=== PATIENT | female | born 1955 | race Two or more races ===

== ENCOUNTER 2018-07-12 18:14 | Inpatient (IN) | payer BC ==
[~2018-07-12] VITALS: Ht 165.1 cm; Wt 149.7 kg
[2018-07-12] MEDS ORDERED: ONDANSETRON HCL 4MG/2ML INJ IV STA (20:11)
[2018-07-12] MEDS ORDERED: MORPHINE SULFATE 4 MG/ML CPJ (NOT FOR IM USE) IV STA (20:11)
[2018-07-12] MEDS ORDERED: FAMOTIDINE 20MG/2ML VIAL IV ONE (20:15)
[2018-07-12] MEDS ORDERED: MAGNESIUM/ALUMINUM HYDROXIDE/SIMETHICONE 30ML UDC PO ONE (20:15)
[2018-07-12 21:31] LABS: BASOPHILS % 0.6 % (0.0-2.0); EOSINOPHILS % 0.3 % (0.0-5.0); HEMATOCRIT. 39.9 % (36.0-48.0); HEMOGLOBIN. 13.2 g/dL (12.0-16.0); LYMPHOCYTES % 15.1 % (20.0-50.0); MEAN CORPUSCULAR HEMOGLOBIN 27.2 pg (28.0-32.0); MEAN CORPUSCULAR VOLUME 82.3 fL (81.0-99.0); MEAN PLATELET VOLUME 9.2 fl (7.4-10.4); MONOCYTES % 7.5 % (2.0-8.0); NEUTROPHILS % 76.5 % (40.0-76.0); PLATELET 239 x1000/uL (130-400); RED BLOOD CELL COUNT 4.85 mill/uL (4.2-5.4); RED CELL DISTRIBUTION WIDTH 16.3 % (11.6-14.6)
[2018-07-12 21:36] LABS: CHLORIDE 103 mEq/L (98-107)
[2018-07-12 21:44] LABS: ETHANOL BLOOD < 10 mg/dL
[2018-07-12 21:45] LABS: D-DIMER 1.27 mg/L FEU (<0.50)
[2018-07-13 08:00] VITALS: BP 160/91
[2018-07-13] MEDS ORDERED: MULT-1146 MT (09:32)
[2018-07-13] MEDS ORDERED: LOSA100T3 MT (09:32)
[2018-07-13] MEDS ORDERED: ASPI-1158 MT (09:32)
[2018-07-13] MEDS ORDERED: CALC-1042 MT (09:32)
[2018-07-13] MEDS ORDERED: SITA100T11 MT (09:32)
[2018-07-13] MEDS ORDERED: RANI150C12 MT (09:32)
[2018-07-13] MEDS ORDERED: CIDE300T3 PO (09:32)
[2018-07-13] MEDS ORDERED: FERR-71 MT (09:32)
[2018-07-13 09:49] VITALS: BP 160/91
[2018-07-13] MEDS ORDERED: IPRATROPIUM/ALBUTEROL 0.5-3(2.5)MG/3ML NEB INH PRN (10:30)
[2018-07-13] MEDS ORDERED: ONDANSETRON HCL 4MG/2ML INJ IV PRN (10:30)
[2018-07-13] MEDS ORDERED: DEXTROSE 50% WATER 50ML SYRINGE IV PRN (11:45)
[2018-07-13] MEDS: LOSARTAN POTASSIUM 100 MG TABLET PO SCH (11:52)
[2018-07-13] MEDS: ENOXAPARIN 40MG/0.4ML SYR SUBCUT SCH ×2 (11:52→21:35)
[2018-07-13] MEDS: CLONIDINE 0.1MG TABLET PO PRN (11:52)
[2018-07-13] MEDS: BLOOD SUGAR DIAGNOSTIC STRIP TEST SCH ×3 (11:53→21:26)
[2018-07-13] MEDS: INSULIN LISPRO 100 UNITS/ML SUBCUT SCH ×3 (11:55→21:00)
[2018-07-13] MEDS: CALCIUM CARBONATE 500MG TABLET CHEW PO SCH ×2 (11:55→18:03)
[2018-07-13 12:00] VITALS: BP 141/69
[2018-07-13] MEDS ORDERED: REGADENOSON 0.4 MG/5 ML IV NR (12:45)
[2018-07-13] MEDS: ACETAMINOPHEN 325MG TABLET PO PRN (15:57)
[2018-07-13 16:00] VITALS: BP 138/71
[2018-07-13 17:40] LABS: CREATINE KINASE 58 IU/L (26-192); CREATINE KINASE MB FRACTION < 1.0 ng/mL (0.5-3.6)
[2018-07-13 20:00] VITALS: BP 125/77
[2018-07-13 23:47] VITALS: BP 132/60
[2018-07-14 00:57] LABS: CREATINE KINASE 61 IU/L (26-192)
[2018-07-14 00:58] LABS: CREATINE KINASE MB FRACTION < 1.0 ng/mL (0.5-3.6)
[2018-07-14 04:00] VITALS: BP 126/72
[2018-07-14] MEDS: BLOOD SUGAR DIAGNOSTIC STRIP TEST SCH ×4 (05:57→20:16)
[2018-07-14 07:14] LABS: BASOPHILS % 0.6 % (0.0-2.0); EOSINOPHILS % 2.1 % (0.0-5.0); HEMATOCRIT. 35.4 % (36.0-48.0); HEMOGLOBIN. 11.7 g/dL (12.0-16.0); LYMPHOCYTES % 33.8 % (20.0-50.0); MEAN CORPUSCULAR HEMOGLOBIN 27.3 pg (28.0-32.0); MEAN CORPUSCULAR VOLUME 82.6 fL (81.0-99.0); MEAN PLATELET VOLUME 9.3 fl (7.4-10.4); MONOCYTES % 10.8 % (2.0-8.0); NEUTROPHILS % 52.7 % (40.0-76.0); PLATELET 210 x1000/uL (130-400); RED BLOOD CELL COUNT 4.29 mill/uL (4.2-5.4); RED CELL DISTRIBUTION WIDTH 16.4 % (11.6-14.6)
[2018-07-14] MEDS: ACETAMINOPHEN 325MG TABLET PO PRN ×2 (07:15→22:30)
[2018-07-14] MEDS: INSULIN LISPRO 100 UNITS/ML SUBCUT SCH ×4 (07:24→20:30)
[2018-07-14 07:27] LABS: CHLORIDE 107 mEq/L (98-107)
[2018-07-14 07:34] LABS: LDL CHOLESTEROL 123 mg/dL (5-100)
[2018-07-14 07:36] LABS: HDL CHOLESTEROL 44 mg/dL (40-59)
[2018-07-14 08:00] VITALS: BP 144/69
[2018-07-14] MEDS: LOSARTAN POTASSIUM 100 MG TABLET PO SCH (08:24)
[2018-07-14] MEDS: CALCIUM CARBONATE 500MG TABLET CHEW PO SCH ×3 (08:24→18:09)
[2018-07-14] MEDS: ASPIRIN 81MG EC TABLET PO SCH (08:24)
[2018-07-14] MEDS: ENOXAPARIN 40MG/0.4ML SYR SUBCUT SCH ×2 (08:25→20:30)
[2018-07-14 08:54] LABS: *AMPHETAMINES SCREEN URINE NEGATIVE (NEGATIVE)
[2018-07-14 08:55] LABS: *BARBITURATES SCREEN URINE NEGATIVE (NEGATIVE)
[2018-07-14 08:56] LABS: *BENZODIAZEPINES SCREEN URINE NEGATIVE (NEGATIVE); *COCAINE SCREEN URINE NEGATIVE (NEGATIVE); CANNABINOID URINE SCREEN NEGATIVE (NEGATIVE); METHADONE URINE SCREEN NEGATIVE (NEGATIVE); OPIATES URINE SCREEN PRESUMTIVE POSITIVE (NEGATIVE); PHENCYCLIDINE URINE SCREEN NEGATIVE (NEGATIVE)
[2018-07-14 12:00] VITALS: BP 125/56
[2018-07-14 16:00] VITALS: BP 142/70
[2018-07-14 20:00] VITALS: BP 165/80
[2018-07-14] MEDS: CLONIDINE 0.1MG TABLET PO PRN (20:30)
[2018-07-15] VITALS: BP 120/66
[2018-07-15 04:00] VITALS: BP 122/84
[2018-07-15] MEDS: BLOOD SUGAR DIAGNOSTIC STRIP TEST SCH ×2 (06:05→13:34)
[2018-07-15 08:00] VITALS: BP 128/66
[2018-07-15] MEDS ORDERED: REGADENOSON 0.4 MG/5 ML IV ONE ×2 (08:03→10:29)
[2018-07-15] MEDS: CALCIUM CARBONATE 500MG TABLET CHEW PO SCH ×2 (08:10→13:10)
[2018-07-15] MEDS: INSULIN LISPRO 100 UNITS/ML SUBCUT SCH ×2 (08:10→13:10)
[2018-07-15] MEDS: ASPIRIN 81MG EC TABLET PO SCH (08:45)
[2018-07-15] MEDS: LOSARTAN POTASSIUM 100 MG TABLET PO SCH (08:45)
[2018-07-15] MEDS: ENOXAPARIN 40MG/0.4ML SYR SUBCUT SCH (08:46)
[2018-07-15 08:58] LABS: CHLORIDE 106 mEq/L (98-107)
[2018-07-15 08:59] LABS: BASOPHILS % 0.3 % (0.0-2.0); EOSINOPHILS % 2.1 % (0.0-5.0); HEMATOCRIT. 35.9 % (36.0-48.0); HEMOGLOBIN. 11.6 g/dL (12.0-16.0); LYMPHOCYTES % 28.9 % (20.0-50.0); MEAN CORPUSCULAR HEMOGLOBIN 26.8 pg (28.0-32.0); MEAN CORPUSCULAR VOLUME 82.8 fL (81.0-99.0); MEAN PLATELET VOLUME 9.3 fl (7.4-10.4); NEUTROPHILS % 57.7 % (40.0-76.0); PLATELET 219 x1000/uL (130-400); RED BLOOD CELL COUNT 4.34 mill/uL (4.2-5.4); RED CELL DISTRIBUTION WIDTH 16.2 % (11.6-14.6)
[2018-07-15 12:00] VITALS: BP 137/73
[2018-07-15 13:56] VITALS: BP 137/73
== END 2018-07-15 15:50 | disposition home or self-care (01) | DRG 392 ==
LOC: ER 18:14 → EDSEX 18:14 → EDBEDREQ 22:11 → EDBEDREQTM 22:11 → 7WST 22:11 → ENRESERV 07-13 05:22
PROVIDERS: ADMIT Internal Medicine; ATTEND Internal Medicine
DX: K21.9 Gastro-esophageal reflux disease without esophagitis (principal); Z68.43 Body mass index [BMI] 50.0-59.9, adult; E87.5 Hyperkalemia; E11.9 Type 2 diabetes mellitus without complications; E66.9 Obesity, unspecified; F41.0 Panic disorder [episodic paroxysmal anxiety]; I11.9 Hypertensive heart disease without heart failure; I45.10 Unspecified right bundle-branch block; Z83.3 Family history of diabetes mellitus; Z87.81 Personal history of (healed) traumatic fracture; Z82.49 Family history of ischemic heart disease and other diseases of the circulatory system
CPT/HCPCS: 36415; 71045; 78452; 78582; 80048; 80061; 80305; 82550; 82553; 82962; 83036; 83880; 84484; 85379; 93005; 93017; 93306; 93970; 96374; 96375; 99285; A9500; A9558; G0482; J1650; J1815; J2270; J2405; J2785; J3490